=== PATIENT | female | born 1950 | race Caucasian/White ===

== ENCOUNTER → 2018-01-19 | Outpatient (CLI) | payer MEDICARE ==
--- NOTE | 2018-01-19 11:33 | BD ---
EXAMINATION TYPE: Axial Bone Density DATE OF EXAM: 01/19/2018 COMPARISON: 08.16.2006 DEXA bone scan report. CLINICAL HISTORY: 67 YR OLD FEMALE....ICD-10 CODE: Z78.0 POST MENOPAUSAL W/O HRT Height: 61.2 Weight: 163 FRAX RISK QUESTIONS: NOTHING TO NOTE HERE RISK FACTORS HISTORY OF: HX OF FX TO LT ARM A TEEN Active: YES Postmenopausal woman: TOTAL HYST AT 52 YRS OLD MEDICATIONS: Prednisone ...3 WKS AGO, FOR A WEEK Additional Medications: BP MEDS, STATIN FOR CHOLESTEROL, Additional History: NOTHING ADDITIONAL TO NOTE HERE EXAM MEASUREMENTS: Bone mineral densitometry was performed using the [employer] System. Bone mineral density as measured about the Lumbar spine is: ----- L1-L4(G/cm2): 1.026 T Score Values are as follows: ----- L1: -1.1 ----- L2: -1.2 ----- L3: -1.4 ----- L4: -1.5 ----- L1-L4: -1.3 Bone mineral density has: Decreased -10.0% since study of: 08.16.2006 Bone mineral density about the R hip (g/cm2): 0.930 Bone mineral density about the L hip (g/cm2): 0.955 T Score values are as follows: -----R Neck: -1.4 -----L Neck: -1.6 -----R Total: -0.6 -----L Total: -0.4 Bone mineral density has: Increased 2.1% since study of: 08.16.2006 FRAX%s: THERE IS A 9.3% CHANCE FOR A MAJOR OSTEOPOROTIC FX AND A 1.2% FOR HIP FX....PROBABILITY OF FX IN 10 YRS TIME IMPRESSION: Osteopenia (T Score between -2.5 and -1) is now present. Bone density is decreased or diminished from prior report in the low back There is slightly increased risk of fracture and the patient may be considered for treatment. Re-Screen 2-5 years. NOTE: T-SCORE=SD OF THE YOUNG ADULT MEAN.
--- NOTE | 2018-01-19 12:10 | MM ---
Reason for exam: screening (asymptomatic). Last mammogram was performed 3 years ago. History: Patient is postmenopausal. Took estrogen for 3 years beginning at age 54. Physical Findings: A clinical breast exam by your physician is recommended on an annual basis and results should be correlated with mammographic findings. MG Screening Mammo w CAD Bilateral CC and MLO view(s) were taken. Prior study comparison: January 29, 2015, bilateral MG screening mammo w CAD. January 24, 2012, CAD bilateral diagnostic mammogram. The breast tissue is heterogeneously dense. This may lower the sensitivity of mammography. Finding: There are typically benign round, grouped/clustered calcifications in the anterior position of the left breast. There is a chronic nodularity in the left axilla. There is no discrete abnormality. ASSESSMENT: Benign, BI-RAD 2 RECOMMENDATION: Routine screening mammogram of both breasts in 1 year.
== END | disposition home or self-care (01) ==
LOC: RADMAMWWP 09:39
PROVIDERS: ATTEND Family Medicine
DX: Z12.31 Encounter for screening mammogram for malignant neoplasm of breast (principal); M85.88 Other specified disorders of bone density and structure, other site; Z78.0 Asymptomatic menopausal state
CPT/HCPCS: 77067; 77080

== ENCOUNTER → 2019-01-29 | Outpatient (CLI) | payer BC, MEDICARE ==
--- NOTE | 2019-01-29 16:13 | US ---
EXAMINATION TYPE: US carotid duplex BILAT DATE OF EXAM: 01/29/2019 COMPARISON: NONE CLINICAL HISTORY: 68-year-old female I10 Hypertension E78.4 Hyperlipidemia, Z86.73 TIA. History of TI A TECHNIQUE: Carotid duplex ultrasound examination. Indirect Doppler criteria is utilized. FINDINGS: EXAM MEASUREMENTS: RIGHT: Peak Systolic Velocity (PSV) cm/sec ----- Right CCA: 55.0 ----- Right ICA: 94.5 ----- Right ECA: 82.6 ICA/CCA ratio: 1.7 RIGHT: End Diastole cm/sec ----- Right CCA: 16.7 ----- Right ICA: 32.7 ----- Right ECA: 19.5 LEFT: Peak Systolic Velocity (PSV) cm/sec ----- Left CCA: 70.2 ----- Left ICA: 96.3 ----- Left ECA: 84.7 ICA/CCA ratio: 1.4 LEFT: End Diastole cm/sec ----- Left CCA: 26.8 ----- Left ICA: 31.4 ----- Left ECA: 19.3 VERTEBRALS (direction of flow): Right Vertebral: Antegrade Left Vertebral: Antegrade Rhythm: Normal [employer] notes: Bilateral intimal thickening, no elevated velocities, no significant stenosis IMPRESSION: No hemodynamically significant ICA stenosis on either side. Criteria for Assigning % of Stenosis / Diameter reduction (Estimation based on the indirect measurements of the internal carotid artery velocities (ICA PSV). 1. Normal (no stenosis)=ICA PSV < 125 cm/s: ratio < 2.0: ICA EDV<40 cm/s. 2. Less than 50% stenosis=ICA PSV < 125 cm/s: ratio < 2.0: ICA EDV<40 cm/s. 3. 50 to 69% stenosis=ICA PSV of 125 to 230 cm/s: ration 2.0 ? 4.0: ICA EDV 40-100 cm/s. 4. Greater than 70% stenosis to near occlusion= ICA PSV > 230 cm/s: ratio > 4.0: ICA EDV > 100 cm/s. 5. Near occlusion= ICA PSV velocities may be low or undetectable: variable ratio and ICA EDV. 6. Total occlusion=unable to detect flow.
== END | disposition home or self-care (01) ==
LOC: RADUSWWP 14:06
PROVIDERS: ATTEND Nurse Practitioner Family
DX: I10 Essential (primary) hypertension (principal); E78.5 Hyperlipidemia, unspecified; Z86.73 Personal history of transient ischemic attack (TIA), and cerebral infarction without residual deficits
CPT/HCPCS: 93880

== ENCOUNTER → 2020-04-17 | Outpatient (CLI) | payer MEDICARE ==
--- NOTE | 2020-04-21 09:13 | MM ---
Reason for exam: screening (asymptomatic). Last mammogram was performed 2 years and 3 months ago. History: Patient is postmenopausal. Took estrogen for 3 years beginning at age 54. Physical Findings: A clinical breast exam by your physician is recommended on an annual basis and results should be correlated with mammographic findings. MG Screening Mammo w CAD Bilateral CC and MLO view(s) were taken. Prior study comparison: January 19, 2018, bilateral MG screening mammo w CAD. January 29, 2015, bilateral MG screening mammo w CAD. There are scattered fibroglandular densities. There are benign appearing round calcifications bilaterally. There is chronic nodularity in the left breast. There is no discrete abnormality. ASSESSMENT: Benign, BI-RAD 2 RECOMMENDATION: Routine screening mammogram of both breasts in 1 year.
== END | disposition home or self-care (01) ==
LOC: RADMAMWWP 09:33
PROVIDERS: ATTEND Family Medicine
DX: Z12.31 Encounter for screening mammogram for malignant neoplasm of breast (principal)
CPT/HCPCS: 77067

== ENCOUNTER → 2022-03-01 | Outpatient (CLI) | payer MEDICARE ==
--- NOTE | 2022-03-01 12:37 | BD ---
EXAMINATION TYPE: Axial Bone Density DATE OF EXAM: 03/01/2022 COMPARISON: NONE CLINICAL HISTORY: 71 years year old Female. ICD-10 CODE: Z78.0 ASYMPTOMATIC MENOPAUSAL STATE Height: 5 FT 1 1/2 IN Weight: 162 FRAX RISK QUESTIONS: Alcohol (3 or more units per day): NO Family History (Parent hip fracture): NO Glucocorticoids (More than 3mos): NO (Ex: prednisone, prednisolone, methylprednisolone, dexamethasone, and hydrocortisone). History of Fracture in Adulthood: NO Secondary Osteoporosis: 1. Type 1 Diabetes: NO 2. Hyperthyroidism: NO 3. Menopause before 45: NO 4. Malnutrition: NO 5. Chronic liver disease: NO Rheumatoid Arthritis: NO Current Tobacco Use: NO RISK FACTORS HISTORY OF: Surgery to Spine/Hip(right/left)/Wrist (right/left): NO Family History of Osteoporosis: NO Active: SOMEWHAT Diet low in dairy products/other sources of calcium: NO Postmenopausal woman: YES Take estrogen and/or progesterone medications: NO Lost more than 2 inches in height since high school: NO Frequent falls: YES Poor Health: GOOD Hyperparathyroidism: NO Adrenal Insufficiency: NO MEDICATIONS: Additional Medications: METOPROLOL,ATORVASTATAN, CLOPIDOGREL, HYDROCHLOROTHIAZIDE Additional History: CARPAL TUNNEL BILATERAL EXAM MEASUREMENTS: Bone mineral densitometry was performed using the [employer] System. Bone mineral density as measured about the Lumbar spine is: ----- L1-L4(G/cm2): 1.067 T Score Values are as follows: ----- L1: -0.3 ----- L2: -0.8 ----- L3: -1.6 ----- L4: -1.0 ----- L1-L4: -0.9 Bone mineral density has: INCREASED 2.5 % since study of: 2018 Bone mineral density about the R hip (g/cm2): 0.842 Bone mineral density about the L hip (g/cm2): 0.782 T Score values are as follows: -----R Neck: -1.4 -----L Neck: -1.8 -----R Total: -0.9 -----L Total: -0.6 Bone mineral density has: DECREASED -3.5 % since study of: 2018 FRAX%s: The graph provided illustrates a 4.7 % chance for a major osteoporotic fx and a 1.2 % chance for the hips probability for fx in 10 years time. IMPRESSION: Normal (Values between +1 and -1 indicate normal bone mass). Consider repeating this study in 5 year s or sooner if there is some new clinical indication. NOTE: T-SCORE=SD OF THE YOUNG ADULT MEAN.
== END | disposition home or self-care (01) ==
LOC: RADBDWWP 08:42
PROVIDERS: ATTEND Family Medicine
DX: Z13.820 Encounter for screening for osteoporosis (principal); Z78.0 Asymptomatic menopausal state
CPT/HCPCS: 77080

== ENCOUNTER → 2022-07-08 | Outpatient (CLI) | payer MEDICARE ==
--- NOTE | 2022-07-09 09:07 | MM ---
Reason for Exam: Screening (asymptomatic). Last screening mammogram was performed 12 month(s) ago. Patient History: Menarche at age 15. First Full-Term at age 18. Left ovary removed at age 50. Right ovary removed at age 50. Hysterectomy at age 50. Postmenopausal. Estrogen for 3 years from age 54 until age 57. Risk Values: Peggy 5 year model risk: 1.1%. NCI Lifetime model risk: 3.2%. Prior Study Comparison: 01/19/2018 Bilateral Screening Mammogram, [facility]. 04/17/2020 Bilateral Screening Mammogram, [facility]. 06/23/2021 Bilateral Screening Mammogram, [facility]. Tissue Density: There are scattered fibroglandular densities. Findings: Analyzed By CAD. There are regional benign appearing punctate calcifications in the bilateral breasts redemonstrated. Benign-appearing bilateral axillary lymph nodes are redemonstrated. There is no suspicious group of microcalcifications or new suspicious mass in either breast. Overall Assessment: Benign, BI-RAD 2 Management: Screening Mammogram of both breasts in 1 year. A clinical breast exam by your physician is recommended on an annual basis and results should be correlated with mammographic findings. Electronically signed and approved by: Efra Coreas M.D.
== END | disposition home or self-care (01) ==
LOC: RADMAMWWP 16:31
PROVIDERS: ATTEND Family Medicine
DX: Z12.31 Encounter for screening mammogram for malignant neoplasm of breast (principal); Z78.0 Asymptomatic menopausal state
CPT/HCPCS: 77063; 77067

== ENCOUNTER → 2023-07-26 | Outpatient (CLI) | payer MEDICARE ==
--- NOTE | 2023-07-27 18:40 | MM ---
Reason for Exam: Screening (asymptomatic). Last mammogram was performed 1 year(s) and 1 month(s) ago. Patient History: Menarche at age 15. First Full-Term at age 18. Left ovary removed at age 50. Right ovary removed at age 50. Hysterectomy at age 50. Postmenopausal. Estrogen for 3 years from age 54 until age 57. Risk Values: Peggy 5 year model risk: 1.2%. NCI Lifetime model risk: 3.0%. Prior Study Comparison: 04/17/2020 Bilateral Screening Mammogram, [facility]. 06/23/2021 Bilateral Screening Mammogram, [facility]. 07/08/2022 Bilateral MG 3D screening mammo w/cad, [facility]. Tissue Density: There are scattered areas of fibroglandular density. Findings: Analyzed By CAD. The pattern is symmetrical. Pattern is stable. No suspicious groups of microcalcifications, spiculated or lobular masses, architectural distortion or other secondary signs of malignancy are mammographically apparent. Overall Assessment: Benign, BI-RAD 2 Management: Screening Mammogram of both breasts in 1 year. A negative mammogram report should not preclude additional follow up of suspicious palpable abnormalities. Patient should continue monthly self breast exam. A clinical breast exam by your physician is recommended on an annual basis and results should be correlated with mammographic findings. Note on Peggy scores and lifetime risk: 1. A Peggy score greater than 3% is considered moderate risk. If this is the case, consider specialist referral to assess eligibility for a risk reducing agent. 2. If overall lifetime risk for the development of breast cancer is 20% or higher, the patient may qualify for future screening with alternating mammogram and breast MRI. Electronically signed and approved by: Woodrow Cardenas D.O. Radiologis
== END | disposition home or self-care (01) ==
LOC: RADMAMWWP 10:53
PROVIDERS: ATTEND Family Medicine
DX: Z12.31 Encounter for screening mammogram for malignant neoplasm of breast (principal); Z78.0 Asymptomatic menopausal state
CPT/HCPCS: 77063; 77067

== ENCOUNTER → 2024-07-05 | Outpatient (CLI) | payer MEDICARE ==
[2024-07-05 14:15] LABS: African American GFR (CKD) >90 (>60 ml/min/1.73 sqM); Blood Urea Nitrogen 16 mg/dL (7-17); Non-African American GFR(CKD) 90 (>60 ml/min/1.73 sqM)
--- NOTE | 2024-07-05 15:10 | CT ---
EXAMINATION TYPE: CT angio neck DATE OF EXAM: 07/05/2024 COMPARISON: CLINICAL INDICATION: Female, 73 years old with history of Z86.73,R55,; PHH, History of TIA, Recurrent Syncope TECHNIQUE: CTA scan of the head and neck is performed without and with IV Contrast, patient injected with 65 ml mL of Isovue 370, axial images are obtained, coronal and sagittal reformatted images are reviewed. 3D reconstructed images are created on an independent workstation and reviewed. CT DLP: 277.[address] CTDI: mGy Automated exposure control for dose reduction was used. NASCET criteria was used in interpretation of this exam? FINDINGS: The brachiocephalic origins are widely patent and no significant stenosis. There is no significant stenosis of the common or internal carotid arteries within the neck. There is no stenosis of the vertebral arteries. IMPRESSION:. No significant abnormality seen. No significant carotid stenosis or aneurysm NASCET criteria was used in interpretation of this exam? [facility], , 07/05/2024 3:08 PM
--- NOTE | 2024-07-05 17:36 | MR ---
INDICATION: Patient age:Female; 73 years old; Reason for study: Z86.73,R55,; [facility]. COMPARISON: MRI brain 07/30/2015, CT brain C-spine 07/21/2015. TECHNIQUE: Multi planar, multi sequence imaging was performed through the brain without administratio n of intravenous contrast. FINDINGS: The thomas-white junctions, ventricular system, basal cisterns appear unremarkable. Age-appropriate cer ebral parenchymal volume. Diffusion-weighted imaging shows no evidence of restricted diffusion to sug gest acute/subacute infarct. Remote small left frontal lobe infarct with gliosis and encephalomalacia (series 601, image 19). Stable from prior exam. Intracranial arterial flow voids are maintained. Pos terior falx calcification redemonstrated. Midline structures show no abnormality. Patchy foci of high T2/FLAIR signal intensity are seen within the periventricular and subcortical white matter. The susc eptibility weighted images do not reveal any evidence for micro-hemorrhage. The bone marrow signal is within normal limits. The left aphakia. The right globe is unremarkable. M oderate mucosal thickening of the left ethmoid sinuses mild mucosal thickening of the right ethmoid s inus. Mild mucosal thickening of the left maxillary sinus. The remaining paranasal sinuses are clear. Left mastoid effusion. IMPRESSION: 1. No evidence of intracranial mass, acute/subacute infarct, or abnormal enhancement. 2. Remote small left frontal lobe infarct. 3. Nonspecific minimal white matter changes, likely related to small vessel ischemic disease. 4. Mild paranasal sinus disease with left mastoid effusion. [facility], , 07/05/2024 5:34 PM
== END | disposition home or self-care (01) ==
LOC: RADCTMAIN 13:33
PROVIDERS: ATTEND Psychiatry & Neurology Neurology
DX: J34.89 Other specified disorders of nose and nasal sinuses (principal); R55 Syncope and collapse; R90.82 White matter disease, unspecified; Z86.73 Personal history of transient ischemic attack (TIA), and cerebral infarction without residual deficits
CPT/HCPCS: 82565; 84520; 70498; 36415; 70551; Q9967

== ENCOUNTER → 2024-07-06 | Outpatient (CLI) | payer MEDICARE ==
--- NOTE | 2024-07-16 13:08 | HM ---
HOLTER MONITOR REPORT STUDY: A 3-day Holter monitor. INDICATION OF THE STUDY: Rule out cardiac arrhythmia. The patient was monitored for 3 days. The baseline rhythm appeared to be sinus mechanism with a minimum heart rate of 55 beats per minute and maximum heart rate of 111 beats per minute and average heart rate of 70 beats per minute. Ventricular ectopic events and supraventricular ectopic events were noted in less than 1%. The patient did have an episode of atrial tachycardia of 4 beats only. No evidence of significant sinus pause or sinus arrest. CONCLUSION: 1. Sinus rhythm as a baseline mechanism. 2. Rare PACs and rare PVCs. 3. The patient did have an episode of atrial tachycardia. 4. No significant sinus pause or sinus arrest noted. MMODL / IJN: [id number] /
== END | disposition home or self-care (01) ==
LOC: RADECHMAIN 07:27
PROVIDERS: ATTEND Psychiatry & Neurology Neurology
DX: I49.3 Ventricular premature depolarization (principal); I47.19 Other supraventricular tachycardia; R55 Syncope and collapse; Z86.73 Personal history of transient ischemic attack (TIA), and cerebral infarction without residual deficits
CPT/HCPCS: 93225